=== PATIENT | male | born 1965 | race Caucasian/White ===

== ENCOUNTER 2017-09-16 11:33 | Day surgery (SDC) | payer SELFPAY ==
[2017-09-14 10:47] LABS: Alanine Aminotransferase 22 units/L (7-56); Albumin 4.1 g/dL (3.9-5); BUN/Creatinine Ratio 29; Blood Urea Nitrogen 20 mg/dL (9-20); Hemolysis Index 13
[2017-09-14 11:40] LABS: Basophils % (Auto) 0.7 % (0.0-1.8); Eosinophils # (Auto) 0.2 K/mm3 (0.0-0.4); Eosinophils % (Auto) 5.2 % (0.0-4.3); Hematocrit 43.8 % (35.5-45.6); Hemoglobin 14.7 gm/dl (11.8-15.2); Lymphocytes # (Auto) 1.5 K/mm3 (1.2-5.4); Lymphocytes % (Auto) 34.1 % (13.4-35.0); Mean Corpuscular HGB Conc 34 % (32-34); Mean Corpuscular Hemoglobin 27 pg (28-32); Mean Corpuscular Volume 82 fl (84-94); Monocytes # (Auto) 0.5 K/mm3 (0.0-0.8); Monocytes % (Auto) 10.5 % (0.0-7.3); Platelet Count 267 K/mm3 (140-440); Red Blood Count 5.37 M/mm3 (3.65-5.03); Red Cell Distribution Width 13.9 % (13.2-15.2)
--- NOTE | 2017-09-14 12:45 | Anesthesia Consultation ---
Anesthesia Consult and Med Hx Date of service: 09/14/17 - Airway Anesthetic Teeth Evaluation: Good ROM Head & Neck: Adequate Mental/Hyoid Distance: Adequate Mallampati Class: Class I Intubation Access Assessment: Good - Pulmonary Exam CTA: Yes - Cardiac Exam Cardiac Exam: RRR - Pre-Operative Health Status ASA Pre-Surgery Classification: ASA2 Proposed Anesthetic Plan: General - Central Nervous System Hx Psychiatric Problems: No - Other Systems Hx Alcohol Use: No Hx Substance Use: No Hx Cancer: No
[~2017-09-16 11:33] MED LIST: LACTATED RINGERS 1,000 ML IV SCH; VERSED IV NR; ceFAZolin 2 GM in NACL 0.9% 100 ML IV ONE
[2017-09-16] MEDS ORDERED: DIPRIVAN 10 MG/ML IV ONE (12:14)
[2017-09-16] MEDS ORDERED: ZEMURON IV ONE (12:14)
[2017-09-16] MEDS ORDERED: SUBLIMAZE ONE ×2 (12:14→14:12)
[2017-09-16] MEDS ORDERED: XYLOCAINE MPF 2% ONE (12:14)
[2017-09-16] MEDS ORDERED: ANCEF/STERILE WATER 2 GM/20 ML 2 GM/20 ML SYRINGE IV SCH (12:30)
[2017-09-16] MEDS ORDERED: MARCAINE 0.5% 30 ML INFILTRATI ONE ×2 (12:57→13:15)
[2017-09-16] MEDS ORDERED: MARCAINE-EPI 0.5%-1:200,000 INFILTRATI ONE (12:57)
[2017-09-16] MEDS ORDERED: ZOFRAN IV PRN (13:28)
[2017-09-16] MEDS ORDERED: DILAUDID IV PRN (13:28)
--- NOTE | 2017-09-16 13:28 | Anesthesia Day of Surgery ---
Anesthesia Day of Surgery - Day of Surgery Patient Examined: Yes Patient H&P Reviewed: Yes Patient is NPO: Yes
[2017-09-16] MEDS ORDERED: ZOFRAN ONE (13:42)
[2017-09-16] MEDS ORDERED: NACL 0.9% IR ONE (13:56)
[2017-09-16] MEDS ORDERED: MARCAINE 0.5% INFILTRATI ONE ×2 (13:56)
[2017-09-16] MEDS ORDERED: BLOXIVERZ ONE (13:57)
[2017-09-16] MEDS ORDERED: ROBINUL ONE (13:57)
--- NOTE | 2017-09-16 14:19 | Discharge Summary ---
Short Stay Discharge Plan Activity: other (observe x 4 hrs then august d/c if stable. ice chips today. cl liq in am. low fat solid diet in 48hrs. keep dressings dry x 5 days. no lifting over 5 lbs x 2 wks) Weight Bearing Status: Non-Weight Bearing Diet: other Wound: keep clean and dry Additional Instructions: aleve I po q 6-8 hrs prn for breakthrough pain Follow up with: NICOLA ADAMSON MD [Staff Physician] - 7 Days
--- NOTE | 2017-09-16 14:33 | Operative Report ---
PREOPERATIVE DIAGNOSIS: Gallbladder disease. POSTOPERATIVE DIAGNOSIS: Gallbladder disease. PROCEDURE: Laparoscopic cholecystectomy. SURGEON: Polo Norton MD CAR GREASER: Dr. Resendiz. ANESTHESIA: General. ESTIMATED BLOOD LOSS: Minimal. COMPLICATIONS: None. DESCRIPTION OF PROCEDURE: The patient was taken to the operating room, prepped and draped in usual sterile fashion. Veress needle was inserted and CO2 insufflation begun. A 5 mm trocar was then inserted and camera inserted. All the trocars were inserted under direct visualization. Gallbladder was then grasped at the fundus and infundibulum and retracted towards the right subphrenic space. A fair amount of omental adhesions were noted on the undersurface of the gallbladder. Gallbladder was also noted to be somewhat distended and full of stones. A slow dissection was carried out along Calot's triangle. The cystic duct and artery were delineated in their entire course. Both were then doubly clipped and transected. Hook electrocautery was used to dissect the gallbladder from the overlying liver bed. Prior to removal, the liver bed was inspected for bleeding and noted to be dry. The cystic duct and artery stumps were once again visualized. The clips were noted to be securely in place with no evidence of bleeding or bile leak. Gallbladder was then completely freed and brought out through the subxiphoid port. This area was inspected for bleeding and noted to be dry. Subxiphoid trocar was then gently reinserted. All other 5 mm ports were then removed under direct visualization. No bleeding or oozing noted. Subxiphoid trocar was then used to expel the CO2 and the trocar removed. The fascia at this site was closed with a [id number] 0 Vicryl suture. The skin at all port sites was closed with subcuticular 4-0 Vicryl. A 0.5% Marcaine was infiltrated over the port site for postoperative pain relief. The patient tolerated the procedure well and left OR in stable condition. JOB# [id number] LEATHA/ADRIA
[2017-09-16] MEDS ORDERED: NORCO 5/325 PO PRN (14:55)
--- NOTE | 2017-09-16 17:21 | Post Anesthesia Evaluation ---
- Post Anesthesia Evaluation Patient Participated: Yes Airway Patent: Yes Stable Respiratory Function: Yes Nausea/Vomiting: No Temp > 96.8F: Yes Pain Manageable: Yes Adequeate Hydration: Yes Anesthesia Complications: No
[2017-09-16 19:35] VITALS: BP 124/73
== END 2017-09-16 18:30 | disposition home or self-care (01) ==
LOC: OR 11:33
PROVIDERS: ATTEND Surgery
DX: K80.10 Calculus of gallbladder with chronic cholecystitis without obstruction (principal); E78.5 Hyperlipidemia, unspecified; Z79.899 Other long term (current) drug therapy
CPT/HCPCS: 36415; 80053; 82150; 85025; 88304; J0690; J2250; J2405; J2704; J2710; J3010; J7120